=== PATIENT | male | born 1960 | race Caucasian/White ===

== ENCOUNTER 2022-03-21 17:55 | Emergency (ER) | payer OTHER ==
--- NOTE | 2022-03-21 18:10 | NUR ---
PT STATED " I HAVE LOW BLOOD SUGAR 71. I DONT FEEL DIZZY OR HEADAGE". HIS BLOOD SUGAR AT TRIAGE ROOM 117. PT STATED MY BLOOD SUGAR IS OK NOW. CECILIAA GO HOME."
--- NOTE | 2022-03-21 18:11 | NUR ---
PATIENT LEFT WITHOUT BEING SEEN BYPA CHAUDHRY. NO FURTHER CARE PROVIDED FOR PATIENT.
[2022-03-21] MEDS ORDERED: TICA90TA PO (20:00)
[2022-03-21] MEDS ORDERED: HYDR25TA32 PO (20:00)
[2022-03-21] MEDS ORDERED: METF-350 PO (20:00)
[2022-03-21] MEDS ORDERED: FAMO-92 PO (20:00)
== END 2022-03-21 18:11 | disposition left against medical advice (07) ==
LOC: MED 17:55
DX: K92.1 Melena (principal); Z53.21 Procedure and treatment not carried out due to patient leaving prior to being seen by health care provider